=== PATIENT | male | born 1990 | race Caucasian/White ===

== ENCOUNTER 2021-01-01 13:06 | Outpatient (REF) | payer SELFPAY ==
[2021-01-02 13:11] LABS: COVID-19 RT-PCR UVMMC Result Negative (Negative)
== END 2021-01-01 13:07 | disposition home or self-care (01) ==
LOC: NCHCN 13:06
PROVIDERS: PCP Internal Medicine; Visit Provider Internal Medicine
DX: Z20.822 Contact with and (suspected) exposure to COVID-19 (principal)
CPT/HCPCS: U0003

== ENCOUNTER 2022-09-09 00:04 | Emergency (ER) | payer MEDICAID, SELFPAY ==
[2022-09-09 00:08] VITALS: BP 124/79; PULSE 89; RESP 20; TEMP 36.8; O2SAT 100
--- NOTE | 2022-09-09 00:43 | ED.GENADUL_ITS ---
Discharge Plan Disposition Patient Disposition: Home Condition: Stable Discharge Details Clinical Impression: Urticaria Primary Care Provider: Jagdeep Hernandez ED Provider: Yashira Doe Home Meds and New Rx's Prescriptions: New prednisone 20 mg tablet See Rx Instructions .ROUTE .COMPLEX Qty: 12 0RF Rx Instructions: Take 3 tabs daily for 2 days, then 2 tabs daily for 2 days, then 1 tab daily for 2 days Continued carbamazepine [Carbatrol] 200 mg capsule, ER multiphase 12 hr 200 mg PO QPM tretinoin 0.1 % cream 1 applic topical DAILY triamcinolone acetonide 0.025 % lotion 1 applic topical DAILY triamcinolone acetonide 0.1 % cream 1 applic topical BID gabapentin 400 mg capsule 400 mg PO QHS diazepam [Diastat AcuDial] 12.5-15-17.5-20 mg kit 5 mg [place] Q12H PRN carbamazepine [Carbatrol] 300 mg capsule, ER multiphase 12 hr 300 mg PO BID clotrimazole [Antifungal (clotrimazole)] 1 % cream 1 applic topical BID PRN lorazepam [Ativan] 1 mg tablet 1 mg PO TID PRN multivitamin Tablet 1 tab PO DAILY cholecalciferol (vitamin D3) 25 mcg (1,000 unit) capsule 25 mcg PO DAILY melatonin 5 mg capsule PO HS PRN gabapentin [Neurontin] 100 mg capsule 100 mg PO BID Discharge Instructions Instructions: Urticaria (ED) Additional Instructions: Your presentation appears consistent with hives. There can be multiple causes of hives, including foods metals, animals, plants or other possible exposures in your environment. A prescription for steroids has been sent electronically to your pharmacy to take as directed until finished. You were given a dose of steroids to to go for home to take tomorrow and then start the prescription on Tuesday. You can continue to take Benadryl and/or Claritin as needed and directed for itching. Follow-up with your primary care doctor in 1 week. Return to the emergency department with any worsening or new concerning symptoms such as worsening rash, difficulty swallowing, difficulty breathing or any other concerns. Discharge Data Discharge Date/Time-TO BE ENTERED AT DEPARTURE: 09/09/22 01:14 Discharge Physician: Yashira Doe Medical Decision Making 31-year-old male with a history of autism and epilepsy presents for pruritic rash noted to face and body for the past 3 days. No obvious known new exposures. Vitals within normal limits. Patient appears comfortable and nontoxic. No signs of respiratory distress. Lungs clear bilaterally. Lesions do appear consistent with urticaria. History and presentation does not appear consistent with viral exanthem, [id number] or TEN. Discussed with mom that although we may not know the etiology, urticaria is generally treated the same and if not resolved with topical steroids and rash is now diffuse, will recommend oral steroids. He is given a dose of prednisone here and a dose for tomorrow considering the holiday. Advised to continue antihistamines as needed for itching. Advised to follow up with the primary care doctor for re- evaluation. Usual and customary return precautions given prior to discharge. Medical Records Medical records reviewed: Yes I reviewed the patient's medical records. Sign Out No HPI General Mode of arrival: ambulatory . Date/Time Provider Initiated Documentation: 09/09/22 00:05 . Limitations to Documentation: no limitations . Information obtained by: patient . HPI Narrative: , Patient is a 31-year-old male with a history of autism and epilepsy who presents for hives for the past 3 days. Mom states that patient was at a constitution party 1 day prior to the onset of the rash and was sitting with children but denies any known exposure. She denies any new foods, meds, soaps, lotions, detergents, pets or plants. She states she took patient to the urgent care and was diagnosed with hives and take Benadryl or Claritin as needed for itching and to restart his triamcinolone which he takes for seborrhea dermatitis. Mom states that the hives have worsened since then. She denies any fever, known difficulty swallowing, difficulty breathing, vomiting or diarrhea. She states patient has been scratching at the rash but does not appear in pain. Related Data Home Medications Medication Instructions Recorded Confirmed carbamazepine 300 mg 300 mg PO BID 09/21/21 09/09/22 capsule,extended release [id number] (Carbatrol) cholecalciferol (vitamin D3) 25 25 mcg PO DAILY 09/21/21 09/09/22 mcg (1,000 unit) capsule clotrimazole 1 % topical cream 1 applic topical BID PRN 09/21/21 09/22/21 (Antifungal (clotrimazole)) diazepam 12.5 mg-15 mg-17.5 mg-20 5 mg [place] Q12H PRN 09/21/21 09/09/22 mg rectal kit (Diastat AcuDial) gabapentin 100 mg capsule 100 mg PO BID 09/21/21 09/09/22 (Neurontin) gabapentin 400 mg capsule 400 mg PO QHS 09/21/21 09/09/22 lorazepam 1 mg tablet (Ativan) 1 mg PO TID PRN 09/21/21 09/09/22 melatonin 5 mg capsule mg PO HS PRN 09/21/21 09/22/21 multivitamin 1 tab PO DAILY 09/21/21 09/09/22 tretinoin 0.1 % topical cream 1 applic topical DAILY 09/21/21 09/22/21 triamcinolone acetonide 0.025 % 1 applic topical DAILY 09/21/21 09/09/22 lotion triamcinolone acetonide 0.1 % 1 applic topical BID 09/21/21 09/22/21 topical cream carbamazepine 200 mg 200 mg PO QPM 09/22/21 09/09/22 capsule,extended release [id number] (Carbatrol) prednisone 20 mg tablet See Rx Instructions .Route 09/09/22 .COMPLEX #12 tabs Previous Rx's Medication Instructions Recorded prednisone 20 mg tablet See Rx Instructions .Route 09/09/22 .COMPLEX #12 tabs Allergies Allergy/AdvReac Type Severity Reaction Status Date / Time diphtheria,pertussis Allergy Verified 09/09/22 00:14 (acellular),te [From Adacel(Tdap Adolesn/Adult)(PF)] lactose Allergy Verified 09/09/22 00:14 Pertussis Vaccines AdvReac Verified 09/09/22 00:14 General Stated Complaint: RashLesion MARCELA: 4 Review of Systems All systems reviewed & are unremarkable except as noted in HPI and below Constitutional Constitutional: Reports as per HPI, Denies chills and Denies fever(s) Eyes Eyes: Denies blurry vision ENT Ears, Nose, Mouth, and Throat: Denies dizziness, Denies sore throat and Denies throat swelling Cardiovascular Cardiovascular: Denies chest pain and Denies dyspnea Respiratory Respiratory: Denies cough and Denies dyspnea Gastrointestinal Gastrointestinal: Denies abdominal pain, Denies diarrhea and Denies vomiting Genitourinary Genitourinary: Denies hematuria and Denies dysuria Musculoskeletal Musculoskeletal: Denies back pain and Denies numbness Integumentary/Breasts Skin/Breast: Denies lesions and Reports rash Neurologic Neurologic: Denies dizziness, Denies localized weakness and Denies numbness Allergic/Immunologic Allergic/Immunologic: Denies throat swelling PFSH All Active Problems (Updated 09/09/22 @ 01:06 by Yashira Doe DO) Urticaria (Acute) Impacted cerumen, bilateral (Acute) Medical History (Updated 09/09/22 @ 01:06 by Yashira Doe DO) Acne vulgaris Autism Bowel incontinence Cerumen impaction Constipation Epilepsy History of pyloric stenosis Intellectual disability Seborrheic dermatitis Short stature Skin mole Sleep disturbance Strabismus Urinary incontinence Surgical History (Updated 09/22/21 @ 10:26 by Corina WRAY) History of hernia repair History of lingual frenulotomy History of placement of ear tubes Family History (Updated 09/22/21 @ 10:26 by Corina WRAY) Father Epilepsy Mother History of environmental allergies Social History (Updated 09/22/21 @ 10:27 by Corina WRAY) Smoking/Tobacco Use Status: Never Smoking risk assessment performed?: Yes Alcohol Intake: never Drug use: Never Household members: family and caregiver Housing: house Pets and animals: Yes Pets and animals: dog(s) Do you feel safe at home: Yes Do you feel safe in your relationship?: Yes Exam Const General: cooperative, healthy appearing and no acute distress HENMT Head: normal to inspection Mouth: oral mucosae normal Eyes General: appearance normal, both eyes and all related structures Neck Neck: normal visual inspection Resp Effort & Inspection: normal respiratory effort and able to speak in complete sentences Auscultation: clear to auscultation bilaterally Cardio Rate: regular rate Rhythm: regular rhythm Skin Other: Blanching erythematous wheals noted to face, ears, chest, back, arms and legs ranging in size from 2 mm to 3 cm. Neuro General: patient alert, patient awake and patient oriented x3 Motor: muscle tone normal throughout Extrem General: normal to inspection and full ROM Psych Appearance: grossly normal Affect: normal affect Course Vital Signs Vital signs: Vital Signs Temperature 98.2 F 09/09/22 00:08 Pulse 89 09/09/22 00:08 Respiratory Rate 20 09/09/22 00:08 Blood Pressure 124/79 09/09/22 00:08 Pulse Oximetry 100 09/09/22 00:08 Temperature 98.2 F 09/09/22 00:08 Temperature Source Temporal Artery Scan 09/09/22 00:08 Pulse 89 09/09/22 00:08 Respiratory Rate 20 09/09/22 00:08 Respiratory Effort 09/09/22 00:24 Blood Pressure 124/79 09/09/22 00:08 Blood Pressure Position Sitting 09/09/22 00:08 Pulse Oximetry 100 09/09/22 00:08 Oxygen Delivery Method Room Air 09/09/22 00:08 Oxygen Flow Rate 0 09/09/22 00:08
[2022-09-09] MEDS: predniSONE 20 MG TAB 60 MG PO ×2 (01:07)
== END 2022-09-09 01:14 | disposition home or self-care (01) ==
PROVIDERS: Emergency Provider Physician Assistant; PCP Internal Medicine
DX: L50.8 Other urticaria (principal)
CPT/HCPCS: 99283; J7512

== ENCOUNTER 2022-09-14 09:03 | Emergency (ER) | payer MEDICAID, SELFPAY ==
[2022-09-14 09:53] VITALS: BP 115/81; PULSE 82; RESP 126; TEMP 37.7; O2SAT 98
--- NOTE | 2022-09-14 09:55 | ED.GENADUL_ITS ---
Discharge Plan Disposition Patient Disposition: Home Condition: Good Discharge Details Clinical Impression: Rash Primary Care Provider: Jagdeep Hernandez ED Provider: Eugene Reddy Home Meds and New Rx's Prescriptions: New prednisone 20 mg tablet 20 mg PO DAILY Qty: 42 0RF Rx Instructions: Take 3 tablets daily for 7 days, followed by 2 tablets daily for 7 days, followed by 1 tablet daily for 7 days. prednisone 20 mg tablet 20 mg PO DAILY Qty: 42 0RF Rx Instructions: Take 3 tablets daily for 7 days, followed by 2 tablets daily for 7 days, followed by 1 tablet daily for 7 days. No Action carbamazepine [Carbatrol] 200 mg capsule, ER multiphase 12 hr 200 mg PO QPM tretinoin 0.1 % cream 1 applic topical DAILY triamcinolone acetonide 0.025 % lotion 1 applic topical DAILY triamcinolone acetonide 0.1 % cream 1 applic topical BID gabapentin 400 mg capsule 400 mg PO QHS diazepam [Diastat AcuDial] 12.5-15-17.5-20 mg kit 5 mg [place] Q12H PRN carbamazepine [Carbatrol] 300 mg capsule, ER multiphase 12 hr 300 mg PO BID clotrimazole [Antifungal (clotrimazole)] 1 % cream 1 applic topical BID PRN lorazepam [Ativan] 1 mg tablet 1 mg PO TID PRN multivitamin Tablet 1 tab PO DAILY cholecalciferol (vitamin D3) 25 mcg (1,000 unit) capsule 25 mcg PO DAILY melatonin 5 mg capsule 5 mg PO HS PRN gabapentin [Neurontin] 100 mg capsule 100 mg PO BID Discharge Instructions Instructions: Acute Rash (ED) Additional Instructions: At this time your rash appears to be improving but still demonstrates symptoms similar to an urticarial rash. This may be from medication or an exposure to the virus or some other issue at home. Please transition to the new prednisone prescription that has been sent to your pharmacy. Please take this as directed. Please continue to take the Benadryl and loratadine as directed. Please follow-up closely with your primary care provider for reassessment. If you notice any worsening of your symptoms, or any new symptoms such as vomiting, diarrhea, fever, chills, shortness of breath, chest pain, numbness, weakness, or fainting , please return immediately to the emergency department for reevaluation. Please follow up with your primary care provider as soon as possible for reassessment and reevaluation. As always, it was a pleasure participating in your medical care today. Referrals: Jagdeep Hernandez MD [Primary Care Provider] - Medical Decision Making 31-year-old male with a past medical history of developmental delay and autism, seizures, who presents today for evaluation of rash. Patient's mother states that he has had the rash for the last week and a half. He initially went to urgent care where he was started on Claritin and Benadryl. Rash worsened, and he came to the ER where he was seen by Dr. Doe about 4 to 5 days ago and was started on prednisone for 5-day course. He is currently titrating down on his prednisone dose and mother has noted that the rash is continued and he had a tiny bit of enlargement of his lips this morning. No other complaints at this time. No vomiting or diarrhea. He is eating and drinking well. He is taking his medications well. No new meds, pets, or potential atypical exposures. Exam demonstrates a well-appearing male, minimal swelling of the lips, and by this I mean extremely minimal. No angioedema of the tongue. A few small urticarial lesions scattered on the chest back and left neck. Patient does have pictures from the last few days and this rash appears to be notably improved. With no signs of airway compromise whatsoever, significant angioedema or other abnormality aside for the mild rash I do feel that discharge is appropriate but I do feel that further prednisone course is indicated. We will place the patient on a prolonged course of steroids with a notable prolonged tapering dose. We will do 60 mg daily for the next week, followed by a tapering dose after this. Recommend close follow-up with primary care provider for reassessment. I feel it is unlikely that the carbamazepine is the cause of his rash or the Depakote at this time as he has been on these for quite some time with no complication however this may be the potential source which should be further discussed with the primary care team. I have extensively reviewed the treatment plan and discharge instructions with the patient and their family. I have addressed all patient concerns at this time. The patient and family was made aware of what symptoms to monitor for that would warrant a return to the emergency department. Discussed the plan with the patient and family, they demonstrate verbal understanding and agreement with our assessment and plan at this time. The documentation in this chart was dictated using [employer] dictation software. Please excuse any dictation errors. Sign Out No HPI General Date/Time Provider Initiated Documentation: 09/14/22 09:30 . HPI Narrative: 31-year-old male with a past medical history of developmental delay and autism, seizures, who presents today for evaluation of rash. Patient's mother states that he has had the rash for the last week and a half. He initially went to urgent care where he was started on Claritin and Benadryl. Rash worsened, and he came to the ER where he was seen by Dr. Doe about 4 to 5 days ago and was started on prednisone for 5-day course. He is currently titrating down on his prednisone dose and mother has noted that the rash is continued and he had a tiny bit of enlargement of his lips this morning. No other complaints at this time. No vomiting or diarrhea. He is eating and drinking well. He is taking his medications well. No new meds, pets, or potential atypical exposures. Related Data Home Medications Medication Instructions Recorded Confirmed carbamazepine 300 mg 300 mg PO BID 09/21/21 09/14/22 capsule,extended release [id number] (Carbatrol) cholecalciferol (vitamin D3) 25 25 mcg PO DAILY 09/21/21 09/14/22 mcg (1,000 unit) capsule clotrimazole 1 % topical cream 1 applic topical BID PRN 09/21/21 09/14/22 (Antifungal (clotrimazole)) diazepam 12.5 mg-15 mg-17.5 mg-20 5 mg [place] Q12H PRN 09/21/21 09/14/22 mg rectal kit (Diastat AcuDial) gabapentin 100 mg capsule 100 mg PO BID 09/21/21 09/14/22 (Neurontin) gabapentin 400 mg capsule 400 mg PO QHS 09/21/21 09/14/22 lorazepam 1 mg tablet (Ativan) 1 mg PO TID PRN 09/21/21 09/14/22 melatonin 5 mg capsule 5 mg PO HS PRN 09/21/21 09/14/22 multivitamin 1 tab PO DAILY 09/21/21 09/14/22 tretinoin 0.1 % topical cream 1 applic topical DAILY 09/21/21 09/14/22 triamcinolone acetonide 0.025 % 1 applic topical DAILY 09/21/21 09/14/22 lotion triamcinolone acetonide 0.1 % 1 applic topical BID 09/21/21 09/14/22 topical cream carbamazepine 200 mg 200 mg PO QPM 09/22/21 09/14/22 capsule,extended release [id number] (Carbatrol) prednisone 20 mg tablet 20 mg PO DAILY #42 tabs 09/14/22 prednisone 20 mg tablet 20 mg PO DAILY #42 tabs 09/14/22 Previous Rx's Medication Instructions Recorded prednisone 20 mg tablet 20 mg PO DAILY #42 tabs 09/14/22 prednisone 20 mg tablet 20 mg PO DAILY #42 tabs 09/14/22 Allergies Allergy/AdvReac Type Severity Reaction Status Date / Time diphtheria,pertussis Allergy Verified 09/14/22 09:59 (acellular),te [From Adacel(Tdap Adolesn/Adult)(PF)] lactose Allergy Verified 09/14/22 09:59 Pertussis Vaccines AdvReac Verified 09/14/22 09:59 General MARCELA: 4 Review of Systems All systems reviewed & are unremarkable except as noted in HPI and below PFSH All Active Problems Urticaria (Acute) Rash (Acute) Impacted cerumen, bilateral (Acute) Medical History Acne vulgaris Autism Bowel incontinence Cerumen impaction Constipation Epilepsy History of pyloric stenosis Intellectual disability Seborrheic dermatitis Short stature Skin mole Sleep disturbance Strabismus Urinary incontinence Surgical History History of hernia repair History of lingual frenulotomy History of placement of ear tubes Family History Father Epilepsy Mother History of environmental allergies Social History Smoking/Tobacco Use Status: Never Smoking risk assessment performed?: Yes Alcohol Intake: never Drug use: Never Substance use type: does not use Household members: family and caregiver Housing: house Pets and animals: Yes Pets and animals: dog(s) Do you feel safe at home: Yes Do you feel safe in your relationship?: Yes Exam Narrative Exam Narrative: 1.Const: Well-nourished, Well-developed, appearing stated age 2.Eyes: PERRL, no conjunctival injection, and symmetrical lids. 3.ENT: Atraumatic external nose and ears. Moist MM. Neck: Symmetric, trachea midline, No thyromegaly. No evidence of angioedema significance. Lips are relatively unremarkable, tongue is not enlarged. No stridor or signs of airway compromise. No oral lesions. 4.CVS: +S1/S2, No murmurs or gallops. Peripheral pulses 2+ and equal in all extremities. Brisk capillary refill in all extremities. 5.RESP: Unlabored respiratory effort. Clear to auscultation bilaterally. No wheezes rales or rhonchi 6.GI: Soft, Nontender/Nondistended, No hepatosplenomegaly. No guarding or rebound. 7.MSK: Normocephalic/Atraumatic, Extremities w/o deformity or ttp No cyanosis or clubbing, Normal movement of all extremities 8.Skin: Patient has a few small urticarial lesions on his chest back and left neck. Each is a centimeter in diameter total. Blanching, and otherwise unremarkable. No oral lesions. Negative Nikolsky sign. No large vesicles or bulla. No palpable purpura. No oral lesions. No mucosal lesions. No evidence of severe cellulitis. No evidence of vaccine preventable rash. 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 Sensation grossly intact, no focal kasie rologic deficits. 10.Psych: (AAO) x3. Appropriate mood and affect
== END 2022-09-14 10:04 | disposition home or self-care (01) ==
PROVIDERS: Emergency Provider Student in an Organized Health Care Education/Training Program; PCP Internal Medicine
DX: R21 Rash and other nonspecific skin eruption (principal)
CPT/HCPCS: 99283

== ENCOUNTER 2023-06-28 23:12 | Emergency (ER) | payer MEDICAID, SELFPAY ==
[2023-06-28 23:15] VITALS: BP 145/100; PULSE 95; TEMP 36.8; O2SAT 94
--- NOTE | 2023-06-28 23:29 | ED.GENADUL_ITS ---
Discharge Plan Disposition Patient Disposition: Home Condition: Stable Discharge Details Clinical Impression: Irritation of left eye Primary Care Provider: Jagdeep Hernandez ED Provider: Jaguar Anthony Home Meds and New Rx's Prescriptions: Continued carbamazepine [Carbatrol] 200 mg capsule, ER multiphase 12 hr 200 mg PO DIRECTED cetirizine 5 mg tablet 5 mg PO BID PRN cholecalciferol (vitamin D3) PO tretinoin 0.1 % cream 1 applic topical DAILY triamcinolone acetonide 0.1 % cream 1 applic topical BID diazepam [Diastat AcuDial] 12.5-15-17.5-20 mg kit 5 mg [place] Q12H PRN multivitamin Tablet 1 tab PO DAILY gabapentin [Neurontin] 100 mg capsule 100 mg PO BID carbamazepine [Carbatrol] 300 mg capsule, ER multiphase 12 hr 300 mg PO DIRECTED lorazepam [Ativan] 1 mg tablet 0.5 mg PO TID PRN Discharge Instructions Additional Instructions: Place a small amount of erythromycin on the lower eyelid twice a day for 5 days or until the tube is gone you can place 1 drop of tetracaine in the eye as needed every 2 hours if needed, try not to use for more then 24 hours if no improvement in 2 days have his eye reexamined if he feels more ill or appears to have severe worsening pain return to the emergency department Medical Decision Making 32 yo male with hx of autism who is nonverbal at baseline per mother comes in with left eye irritation. Mother reports he was well during the day and they were sitting on the porch this evening and she sprayed him with mosquito repellent. Some of this got in his eyes and he started to rub his left eye frequently per the mother. HE has not been able to sleep and keeps rubbing his left eye so she brought him here. He has no periorbital swelling, left eye conjunctiva is injected, pupil appears normal, he pushes my hands away and shakes his head when trying to do a more in detail look of his eye, nursing and mother helped to hold him so I could place tetracaine in his eye, will reassess after this has had time to take effect but suspect he has a corneal abrasion from rubbing his eye so much. pt now much more calm and doesn't appear to be in pain and is not rubbing his eye. HE is watching a video on his mothers phone and opens his eye fully which he wasn't able to do before. He has no visible foreign body on exam. The eye doesn't feel any harder then the right eye, unable to obtain iop due to inability to cooperate for exam but doubt glaucoma. Was able to place small amount of flourescein on the eye and has a 1mm corneal abrasion at the 6 oclock position of the conjunctiva. No visible foreign bodies. Discussed with his mother, will place on for erythromycin ointment to prevent conjunctivitis. Advised if not better in 2 days to have eye reexamined Differential Diagnosis Differential Diagnosis: corneal abrasion, conjunctivitis HPI General Mode of arrival: ambulatory . Date/Time Provider Initiated Documentation: 06/28/23 23:22 . Information obtained by: family . History of Present Illness 32 year old M presents to the emergency department with the chief complaint of left eye irritation, described as moderate, Patient started experiencing this hour(s) (5) and it has been constant. No relieving factors improve symptom(s), No exacerbating factors reported . Patient notes no other symptoms.. Related Data Home Medications Medication Instructions Recorded Confirmed diazepam 12.5 mg-15 mg-17.5 mg-20 5 mg IA Q12H PRN 09/21/21 05/16/23 mg rectal kit (Diastat AcuDial) gabapentin 100 mg capsule 100 mg PO BID 09/21/21 05/16/23 (Neurontin) multivitamin 1 tab PO DAILY 09/21/21 05/16/23 tretinoin 0.1 % topical cream 1 applic topical DAILY 09/21/21 05/16/23 triamcinolone acetonide 0.1 % 1 applic topical BID 09/21/21 05/16/23 topical cream carbamazepine 200 mg 200 mg PO DIRECTED 05/16/23 05/16/23 capsule,extended release [id number] (Carbatrol) carbamazepine 300 mg 300 mg PO DIRECTED 05/16/23 05/16/23 capsule,extended release [id number] (Carbatrol) cetirizine 5 mg tablet 5 mg PO BID PRN 05/16/23 05/16/23 cholecalciferol (vitamin D3) PO 05/16/23 05/16/23 lorazepam 1 mg tablet (Ativan) 0.5 mg PO TID PRN 05/16/23 05/16/23 Allergies Allergy/AdvReac Type Severity Reaction Status Date / Time diphtheria,pertussis Allergy Verified 05/16/23 15:07 (acellular),te [From Adacel(Tdap Adolesn/Adult)(PF)] lactose Allergy Verified 05/16/23 15:07 Pertussis Vaccines AdvReac Verified 05/16/23 15:07 General Stated Complaint: EyeProblem MARCELA: 4 Review of Systems Unobtainable due to mental condition PFSH All Active Problems (Updated 06/28/23 @ 23:38 by Jaguar Anthony MD) Irritation of left eye (Acute) Impacted cerumen, bilateral (Acute) Medical History Acne vulgaris Autism Bowel incontinence Cerumen impaction Constipation Epilepsy History of pyloric stenosis Intellectual disability Seborrheic dermatitis Short stature Skin mole Sleep disturbance Strabismus Urinary incontinence Surgical History History of hernia repair History of lingual frenulotomy History of placement of ear tubes Family History Father Epilepsy Mother History of environmental allergies Social History Smoking/Tobacco Use Status: Never Smoking risk assessment performed?: Yes Alcohol Intake: never Drug use: Never Substance use type: does not use Household members: family and caregiver Housing: house Pets and animals: Yes Pets and animals: dog(s) Do you feel safe at home: Yes Do you feel safe in your relationship?: Yes Exam Const General: no acute distress Orientation: alert HENAZ Head: normal to inspection Ears: external ears normal General nose exam: external nose normal Mouth: moist mucous membranes Eyes Eyelids: eyelids normal Pupils: PERRL Neck Neck: normal visual inspection Resp Effort & Inspection: normal respiratory effort Cardio Rate: regular rate Skin General skin exam: no rashes or lesions noted Neuro General: patient alert Extrem General: normal to inspection Psych Mental Status: mental status grossly normal Course Vital Signs Vital signs: Vital Signs Temperature 36.8 C 06/28/23 23:15 Pulse 95 H 06/28/23 23:15 Blood Pressure 145/100 H 06/28/23 23:15 Pulse Oximetry 94 06/28/23 23:15 Temperature 36.8 C 06/28/23 23:15 Pulse 95 H 06/28/23 23:15 Respiratory Effort Normal, Non-Labored 06/28/23 23:21 Blood Pressure 145/100 H 06/28/23 23:15 Pulse Oximetry 94 06/28/23 23:15
[2023-06-28] MEDS: Balanced Salt Solution 15 ML BTL OP (23:59)
[2023-06-29] MEDS: Erythromycin Ophth Oint 3.5 GM TUBE OP
== END 2023-06-29 01:03 | disposition home or self-care (01) ==
LOC: ER 06-29
PROVIDERS: Emergency Provider Emergency Medicine; PCP Internal Medicine
DX: S05.02XA Injury of conjunctiva and corneal abrasion without foreign body, left eye, initial encounter (principal); F84.0 Autistic disorder; X58.XXXA Exposure to other specified factors, initial encounter
CPT/HCPCS: 99282

== ENCOUNTER 2023-10-25 18:17 | Emergency (ER) | payer MEDICAID, SELFPAY ==
[2023-10-25 18:21] VITALS: BP 149/90; PULSE 70; RESP 18; TEMP 36.8; O2SAT 97
--- NOTE | 2023-10-25 18:29 | W.ED.GENAD ---
HPI General Stated Complaint: EyeProblem MARCELA: 4 Date/Time Provider Initiated Documentation: 10/25/23 18:29. HPI Narrative: MDM This is an overall very well-appearing normothermic and not tachycardic 32-year-old with left corneal abrasion for which he will receive erythromycin ointment in the absence of any contact lenses use. No proptosis or fevers to suggest orbital cellulitis. No afferent pupillary defect to suggest retrobulbar hematoma. Patient had normal pH in his left eye so my suspicion for needs for irrigation is low. Unable to obtain visual acuity secondary to patient's autism and reported mental level of 7-4-lshg-old according to patient's mother. I have asked health unit support representative Rose to have the patient seen in follow-up by [facility] tomorrow. Patient's mother also call [facility] eye care. Chronic conditions affecting the care of the patient: Autism History obtained from an outside historian: N/A External record review: N/A Medications: Tetracaine Social determinants of health affecting disposition: N/A Management discussed with: N/A Treatment/interventions considered: N/A Response to therapies provided: N/A HPI This is a 32-year-old autistic male arriving to the emergency department via private vehicle with his mother in the setting of left eye pain. Patient is nonverbal at baseline. His left eye became irritated this afternoon after he had been eating crackers. He reportedly rubbed his eye. His mom attempted to flush his eye at home with contact lens solution. Patient then took a nap. Subsequently when he woke up he had irritation in his left eye. Mom does not recall any specific trauma beyond rubbing his eyes following eating crackers. Exam General: Chronically ill-appearing in no acute distress but intermittently spitting. Head: Normocephalic, atraumatic. Eye:[Pupils equal, round reactive to light.] Extraocular eye movements intact. Left eye: Injected conjunctiva. No proptosis. After instilling tetracaine in the patient's eyes on the left he did have mild uptake on fluorescein stain Mojica lamp at approximately the 3 o'clock position off of the visual axis. Patient was unable to sit for a slit-lamp exam. Ear, nose, mouth, throat: Grossly normal inspection. Normal voice, handling secretions normally. Neck: Trachea midline. Cardiovascular: Well-perfused distal extremities. Respiratory: Nonlabored respiration. Gastrointestinal: Nondistended abdomen. Musculoskeletal: No edema. Moving all 4 extremities spontaneously. Skin: Normal for age and race, grossly normal temperature and turgor. No acute rash. Neurologic: Moving all 4 extremities spontaneously. Related Data Home Medications Medication Instructions Recorded Confirmed diazepam 12.5 mg-15 mg-17.5 mg-20 5 mg MI Q12H PRN 09/21/21 10/25/23 mg rectal kit (Diastat AcuDial) gabapentin 100 mg capsule 100 mg PO BID 09/21/21 10/25/23 (Neurontin) multivitamin 1 tab PO DAILY 09/21/21 10/25/23 tretinoin 0.1 % topical cream 1 applic topical DAILY 09/21/21 10/25/23 triamcinolone acetonide 0.1 % 1 applic topical BID 09/21/21 10/25/23 topical cream carbamazepine 200 mg 200 mg PO DIRECTED 05/16/23 10/25/23 capsule,extended release [id number] (Carbatrol) carbamazepine 300 mg 300 mg PO DIRECTED 05/16/23 10/25/23 capsule,extended release [id number] (Carbatrol) cetirizine 5 mg tablet 5 mg PO BID PRN 05/16/23 10/25/23 cholecalciferol (vitamin D3) 1 tab PO DAILY 05/16/23 10/25/23 lorazepam 1 mg tablet (Ativan) 0.5 mg PO TID PRN 05/16/23 10/25/23 Allergies Allergy/AdvReac Type Severity Reaction Status Date / Time diphtheria,pertussis Allergy Verified 10/25/23 18:27 (acellular),te [From Adacel(Tdap Adolesn/Adult)(PF)] lactose Allergy Verified 10/25/23 18:27 Pertussis Vaccines AdvReac Verified 10/25/23 18:27 PFSH All Active Problems (Updated 10/25/23 @ 18:48 by Castro Nayak MD) Abrasion of left cornea (Acute) Impacted cerumen, bilateral (Acute) Medical History History of pyloric stenosis Autism Short stature Strabismus Epilepsy Urinary incontinence Seborrheic dermatitis Skin mole Acne vulgaris Constipation Sleep disturbance Bowel incontinence Intellectual disability Cerumen impaction Surgical History History of lingual frenulotomy History of hernia repair History of placement of ear tubes Family History Father Epilepsy Mother History of environmental allergies Social History Smoking/Tobacco Use Status: Never Smoking risk assessment performed?: Yes Alcohol Intake: never Drug use: Never Substance use type: does not use Household members: family and caregiver Housing: house Pets and animals: Yes Pets and animals: dog(s) Do you feel safe at home: Yes Do you feel safe in your relationship?: Yes Course Vital Signs Vital signs: Vital Signs Respiratory Rate 18 10/25/23 18:21 Blood Pressure 149/90 H 10/25/23 18:21 Respiratory Rate 18 10/25/23 18:21 Blood Pressure 149/90 H 10/25/23 18:21 Oxygen Delivery Method Room Air 10/25/23 18:21 Oxygen Flow Rate 0 10/25/23 18:21 Medical Decision Making Quality:SDOH Health Related Social Needs: No Data to Display Discharge Plan Disposition Patient Disposition: Home Discharge Details Clinical Impression: Abrasion of left cornea Primary Care Provider: BEATRIZ LAZO ED Provider: Castro Nayak Home Meds and New Rx's Prescriptions: Continued carbamazepine [Carbatrol] 200 mg capsule, ER multiphase 12 hr 200 mg PO DIRECTED cetirizine 5 mg tablet 5 mg PO BID PRN cholecalciferol (vitamin D3) 1 tab PO DAILY tretinoin 0.1 % cream 1 applic topical DAILY triamcinolone acetonide 0.1 % cream 1 applic topical BID diazepam [Diastat AcuDial] 12.5-15-17.5-20 mg kit 5 mg MI Q12H PRN multivitamin Tablet 1 tab PO DAILY gabapentin [Neurontin] 100 mg capsule 100 mg PO BID carbamazepine [Carbatrol] 300 mg capsule, ER multiphase 12 hr 300 mg PO DIRECTED lorazepam [Ativan] 1 mg tablet 0.5 mg PO TID PRN Discharge Instructions Instructions: Corneal Abrasion (ED) Additional Instructions: You were seen in the emergency department for your eye pain. You have sustained a corneal abrasion for which you are receiving an antibiotic ointment that you should take as directed. Please call [facility] tomorrow in the morning for follow-up. Please return to the emergency department if you develop any fevers chills nausea or vomiting. Discharge Data Discharge Date/Time-TO BE ENTERED AT DEPARTURE: 10/25/23 19:23
[2023-10-25 19:22] VITALS: PULSE 88; RESP 18; O2SAT 98
[2023-10-25] MEDS: Erythromycin Ophth Oint 3.5 GM TUBE OD (19:22)
--- NOTE | 2023-10-25 19:26 | NUR.NOTE ---
Referral faxed to [facility] to f/u 10/26/23 for corneal abrasion.Nursing Note:
== END 2023-10-25 19:23 | disposition home or self-care (01) ==
PROVIDERS: Emergency Provider Emergency Medicine; PCP Nurse Practitioner Family
DX: S05.02XA Injury of conjunctiva and corneal abrasion without foreign body, left eye, initial encounter; X58.XXXA Exposure to other specified factors, initial encounter; F84.0 Autistic disorder; Z79.899 Other long term (current) drug therapy; G40.909 Epilepsy, unspecified, not intractable, without status epilepticus
CPT/HCPCS: 99283

== ENCOUNTER 2025-02-03 00:49 | Emergency (ER) | payer MEDICAID, SELFPAY ==
[2025-02-03 00:53] VITALS: BP 133/87; PULSE 102; RESP 20; TEMP 37.1; O2SAT 98
[2025-02-03] MEDS: predniSONE 20 MG TAB 60 MG PO (01:13)
--- NOTE | 2025-02-03 01:36 | W.ED.GENAD ---
Discharge Plan Disposition Patient Disposition: Home Condition: Good Discharge Details Clinical Impression: Swollen lip Primary Care Provider: Pj Myrick ED Provider: Eugene Reddy Home Meds and New Rx's Prescriptions: New prednisone 50 mg tablet 50 mg PO DAILY Qty: 4 0RF No Action carbamazepine [Carbatrol] 200 mg capsule, ER multiphase 12 hr 200 mg PO DIRECTED risperidone 0.5 mg tablet 1 mg PO BID cetirizine 5 mg tablet 5 mg PO BID PRN cholecalciferol (vitamin D3) 1 tab PO DAILY tretinoin 0.1 % cream 1 applic topical DAILY triamcinolone acetonide 0.1 % cream 1 applic topical BID diazepam [Diastat AcuDial] 12.5-15-17.5-20 mg kit 5 mg NV Q12H PRN multivitamin Tablet 1 tab PO DAILY gabapentin [Neurontin] 100 mg capsule 100 mg PO BID carbamazepine [Carbatrol] 300 mg capsule, ER multiphase 12 hr 300 mg PO DIRECTED lorazepam [Ativan] 1 mg tablet 0.5 mg PO TID PRN Discharge Instructions Instructions: Angioedema (DC) Additional Instructions: At this time the swelling has stabilized and improved. Please take the steroid as prescribed. Please monitor your son's symptoms closely. If you notice worsening of his swelling, difficulty swallowing or drinking, difficulty controlling secretions, difficulty breathing, please return immediately for reassessment. If you notice any worsening of your symptoms, or any new symptoms such as vomiting, diarrhea, fever, chills, shortness of breath, chest pain, numbness, weakness, or fainting , please return immediately to the emergency department for reevaluation. Please follow up with your primary care provider as soon as possible for reassessment and reevaluation. As always, it was a pleasure participating in your medical care today. Referrals: Pj Myrick MD [Primary Care Provider] - [facility] General Date/Time Provider Initiated Documentation: 02/03/25 01:05. [facility] Narrative: This is a pleasant 34-year-old male with a past medical history of autism, who is nonverbal, epilepsy for which he takes carbamazepine and gabapentin, as well as a history of lower lip swelling and hives in the past which were suspected to be allergic reaction. He presents today for swelling of his lower lip. The patient takes daily Zyrtec/cetirizine. He took that this evening at his normal prescribed time at around 7 PM. He had a pizza for dinner which is the first time he has ever had Artisan pizza which had various herbs and other atypical ingredients on it per caregiver. This evening at around midnight the patient was noted to have a swollen lower lip. This was atypical and he did receive Claritin at home. No other new medications otherwise. No other new foods or atypical nuts that family is aware of. Patient is nonverbal but aside for swelling of the lower lip has no other complaints. He has been able to control his secretions. Caregiver denies any vomiting or diarrhea. No fevers. No new antiepileptic medications. Caregiver states that in the past when he has had a swollen lip he also developed hives, but none have been present this time. He is not on any antihypertension medication that is an MAYRA inhibitor or an ARB. Related Data Home Medications ?Medication ?Instructions ?Recorded ?Confirmed diazepam 12.5 mg-15 mg-17.5 mg-20 5 mg NV Q12H PRN 09/21/21 02/03/25 mg rectal kit (Diastat AcuDial) gabapentin 100 mg capsule 100 mg PO BID 09/21/21 02/03/25 (Neurontin) multivitamin 1 tab PO DAILY 09/21/21 02/03/25 tretinoin 0.1 % topical cream 1 applic topical DAILY 09/21/21 02/03/25 triamcinolone acetonide 0.1 % 1 applic topical BID 09/21/21 02/03/25 topical cream carbamazepine 200 mg 200 mg PO DIRECTED 05/16/23 02/03/25 capsule,extended release [id number] (Carbatrol) carbamazepine 300 mg 300 mg PO DIRECTED 05/16/23 02/03/25 capsule,extended release [id number] (Carbatrol) cetirizine 5 mg tablet 5 mg PO BID PRN 05/16/23 02/03/25 cholecalciferol (vitamin D3) 1 tab PO DAILY 05/16/23 02/03/25 lorazepam 1 mg tablet (Ativan) 0.5 mg PO TID PRN 05/16/23 02/03/25 risperidone 0.5 mg tablet 1 mg PO BID 01/14/25 02/03/25 prednisone 50 mg tablet 50 mg PO DAILY #4 tabs 02/03/25 Previous Rx's ?Medication ?Instructions ?Recorded prednisone 50 mg tablet 50 mg PO DAILY #4 tabs 02/03/25 Allergies Allergy/AdvReac Type Severity Reaction Status Date / Time diphtheria,pertussis Allergy unknown Verified 02/03/25 00:59 (acellular),te (From Adacel(Tdap Adolesn/Adult)(PF)) lactose Allergy unknown Verified 02/03/25 00:59 Pertussis Vaccines AdvReac unknown Verified 02/03/25 00:59 General Stated Complaint: Allergic MARCELA: 3 Exam Narrative Exam Narrative: 1.Const: Well-nourished, Well-developed, appearing stated age 2.Eyes: PERRL, no conjunctival injection, and symmetrical lids. 3.ENT: Atraumatic external nose and ears. Moist MM. Neck: Symmetric, trachea midline, No thyromegaly. Mild swelling of the lower lip, no angioedema of the tongue. No difficulty controlling secretions, no tripoding, no hot potato voice, no drooling. No signs of Ludewig's angina, no tenderness on palpation of the mouth jaw or throat. 4.CVS: +S1/S2, Peripheral pulses 2+ and equal in all extremities. Brisk capillary refill in all extremities. 5.RESP: Unlabored respiratory effort. Clear to auscultation bilaterally. No wheezes rales or rhonchi 6.GI: Soft, Nontender/Nondistended, No hepatosplenomegaly. No guarding or rebound. 7.MSK: Normocephalic/Atraumatic, Extremities w/o deformity or ttp No cyanosis or clubbing, Normal movement of all extremities 8.Skin: Warm, Dry. No rashes or lesions. 9.Neuro: portable track line marker II-XII grossly intact. Sensation grossly intact, no focal neurologic deficits. 10.Psych: Nonverbal and at baseline Course Vital Signs Vital signs: Vital Signs Temperature 37.1 C 02/03/25 00:53 Pulse 102 H 02/03/25 00:53 Respiratory Rate 101 H 02/03/25 00:53 Blood Pressure 133/87 02/03/25 00:53 Pulse Oximetry 98 02/03/25 00:53 Temperature 37.1 C 02/03/25 00:53 Pulse 102 H 02/03/25 00:53 Respiratory Rate 101 H 02/03/25 00:53 Respiratory Effort Normal 02/03/25 01:16 Respiratory Pattern Normal 02/03/25 01:16 Blood Pressure 133/87 02/03/25 00:53 Pulse Oximetry 98 02/03/25 00:53 Medical Decision Making This is a pleasant 34-year-old male with a past medical history of autism, who is nonverbal, epilepsy for which he takes carbamazepine and gabapentin, as well as a history of lower lip swelling and hives in the past which were suspected to be allergic reaction. He presents today for swelling of his lower lip. The patient takes daily Zyrtec/cetirizine. He took that this evening at his normal prescribed time at around 7 PM. He had a pizza for dinner which is the first time he has ever had Artisan pizza which had various herbs and other atypical ingredients on it per caregiver. This evening at around midnight the patient was noted to have a swollen lower lip. This was atypical and he did receive Claritin at home. No other new medications otherwise. No other new foods or atypical nuts that family is aware of. Patient is nonverbal but aside for swelling of the lower lip has no other complaints. He has been able to control his secretions. Caregiver denies any vomiting or diarrhea. No fevers. No new antiepileptic medications. Caregiver states that in the past when he has had a swollen lip he also developed hives, but none have been present this time. He is not on any antihypertension medication that is an MAYRA inhibitor or an ARB. Exam demonstrates Mild swelling of the lower lip, no angioedema of the tongue. No difficulty controlling secretions, no tripoding, no hot potato voice, no drooling. No signs of Ludewig's angina, no tenderness on palpation of the mouth jaw or throat. No evidence to suggest epiglottitis. No significant angioedema of the tongue to give concern for airway compromise. Lower lip is only mildly enlarged, and symptoms do not appear consistent with severe angioedema. No evidence of cut, however contusion leading to swelling is on the differential. No hives throughout his body or rash whatsoever to suggest significant allergic systemic reaction. Patient has already received Claritin and Zyrtec. We will give an oral dose of prednisone 60 mg. No indication for epinephrine, TXA, FFP or other angioedema reversal agent secondary to the notably mild status of the swelling. Will monitor the patient for the next few hours and closely reassess. 3:50 AM Patient has been observed for greater than 2 hours. Symptoms seem to be mildly improving. Definitely no worsening of symptomatology. He remains notably active, shows no signs of airway compromise, he is able to tolerate p.o. and his secretions. He shows no evidence of significant angioedema, tongue enlargement, or other abnormality. I had a long discussion with the mother, at this time she feels comfortable with the patient's progress and would like to go home. Patient will be discharged. We discussed concerning red flags for which to immediately return and she understands. Symptoms appear clinically inconsistent with significant angioedema, anaphylaxis, or cellulitis or infection. I have extensively reviewed the treatment plan and discharge instructions with the patient and their family. I have addressed all patient concerns at this time. The patient and family was made aware of what symptoms to monitor for that would warrant a return to the emergency department. Discussed the plan with the patient and family, they demonstrate verbal understanding and agreement with our assessment and plan at this time. The documentation in this chart was dictated using [employer] dictation software. Please excuse any dictation errors. Quality:SDOH Health Related Social Needs: No Data to Display PFSH All Active Problems (Updated 02/03/25 @ 03:25 by Eugene Reddy DO) Swollen lip (Acute) Impacted cerumen, bilateral (Acute) Medical History History of pyloric stenosis Autism Short stature Strabismus Epilepsy Urinary incontinence Seborrheic dermatitis Skin mole Acne vulgaris Constipation Sleep disturbance Bowel incontinence Intellectual disability Cerumen impaction Surgical History History of lingual frenulotomy History of hernia repair History of placement of ear tubes Family History Father Epilepsy Mother History of environmental allergies Social History Smoking/Tobacco Use Status: Never Smoking risk assessment performed?: Yes Alcohol Intake: never Drug use: Never Substance use type: does not use Household members: family and caregiver Housing: house Pets and animals: Yes Pets and animals: dog(s) Do you feel safe at home: Yes Do you feel safe in your relationship?: Yes
[2025-02-03 02:49] VITALS: BP 130/85; PULSE 83; RESP 16; O2SAT 96
== END 2025-02-03 03:33 | disposition home or self-care (01) ==
PROVIDERS: Emergency Provider Student in an Organized Health Care Education/Training Program; PCP Family Medicine
DX: R22.0 Localized swelling, mass and lump, head (principal); F84.0 Autistic disorder; G40.909 Epilepsy, unspecified, not intractable, without status epilepticus
CPT/HCPCS: 99283; J7512

== ENCOUNTER 2025-05-07 12:56 | Outpatient (CLI) | payer MEDICAID, SELFPAY | END 2025-05-07 12:57 | disposition home or self-care (01) | LOC: LBO 12:57 | PROVIDERS: PCP Family Medicine; Visit Provider Psychiatry & Neurology Neurology | DX: R45.1 Restlessness and agitation (principal); G40.219 Localization-related (focal) (partial) symptomatic epilepsy and epileptic syndromes with complex partial seizures, intractable, without status epilepticus | CPT/HCPCS: 36415; 80156 ==

== ENCOUNTER 2025-06-18 15:56 | Outpatient (CLI) | payer MEDICAID, SELFPAY ==
[2025-06-18 16:13] LABS: Abs Immature Grans 0.02 10^3/uL (0.0-0.06); HCT 43.7 % (40.0-50.0); HGB 14.2 g/dL (13.5-17.5); Immature Grans % 0.3 %; MCH 29.5 pg (27.0-33.0); MCHC 32.5 % (32.0-36.0); MCV 91 fL (80-95); MPV 9.5 fL (8.0-11.0); Platelet Count 186 10^3/uL (130-400); RBC 4.82 10^6/uL (4.36-5.78); RDW 12.6 % (11.8-14.1); RDW-SD 41.7 fL; WBC 5.85 10^3/uL (4.4-10.8)
[2025-06-18 17:04] LABS: Chloride 105 mmol/L (98-107); Estimated GFR 128.30 (mL/min/1.73m2); HDL Cholesterol 51 mg/dL (>or=40); Triglyceride 147 mg/dL (<150)
[2025-06-18 17:06] LABS: Anion Gap 9.0 mmol/L (3-11); BUN 12 mg/dL (7-18); CO2 31.0 mmol/L (21.0-32.0); Calcium 9.6 mg/dL (8.5-10.1); Calculated LDL 194 mg/dL (<100); Cholesterol 274 mg/dL (<200); Glucose 95 mg/dL (74-106); Potassium 4.2 mmol/L (3.5-5.1); Sodium 145 mmol/L (136-145)
== END 2025-06-18 15:57 | disposition home or self-care (01) ==
LOC: LBO 15:56
PROVIDERS: PCP Family Medicine; Visit Provider Psychiatry & Neurology Neurology
DX: G40.219 Localization-related (focal) (partial) symptomatic epilepsy and epileptic syndromes with complex partial seizures, intractable, without status epilepticus (principal)
CPT/HCPCS: 36415; 80048; 80061; 80171; 80156; 85025